=== PATIENT | male | born 1965 | race Caucasian/White ===

== ENCOUNTER → 2021-03-27 08:23 | Outpatient (BNVA) | payer OTHER, SELFPAY | PROVIDERS: Visit Provider Internal Medicine | DX: M79.18 Myalgia, other site (principal); Z91.81 History of falling | CPT/HCPCS: 72100; 99203 ==

== ENCOUNTER → 2021-04-19 08:03 | Outpatient (BNVA) | payer OTHER, SELFPAY | PROVIDERS: Visit Provider Internal Medicine | DX: M54.50 Low back pain, unspecified (principal) | CPT/HCPCS: 99213 ==

== ENCOUNTER 2024-06-24 15:24 | Emergency (ER) | payer BC, SELFPAY ==
--- NOTE | ~2024-06-24 | US_ITS ---
CLINICAL HISTORY: pain Venous duplex ultrasound left lower extremity Comparison: None Findings: The visualized deep veins are fully compressible with normal Doppler color flow and spectral tracings. No popliteal cyst. Several left inguinal lymph nodes are demonstrated the largest measures 2.2 cm x 1.1 cm x 1.3 cm, could be reactive but nonspecific. IMPRESSION: 1. Negative for left lower extremity deep vein thrombosis. This document has been electronically signed by: Nanette Vargas MD on 06/24/2024 18:29:23
[2024-06-24 15:38] VITALS: BP 138/72; PULSE 78; RESP 18; TEMP 37.1; O2SAT 96; BMI 39.2
--- NOTE | 2024-06-24 15:39 | ED.GENADULT ---
HPI - General Adult General Chief complaint: General Medical Stated complaint: ? cellulitis left leg,fever Time Seen by Provider: 06/24/24 19:16 Source: patient, RN notes reviewed and old records reviewed Mode of arrival: ambulatory Limitations: no limitations History of Present Illness HPI narrative: 58-year-old male presents for evaluation of left leg pain and swelling. His symptoms started 2 days ago. He has previously had cellulitis in the area and reports that this feels similar He does endorse subjective fevers and chills last night but does not have those currently or at all today. He is not a diabetic. Denies any recent injuries or wounds to the left lower leg around the muir. He has no calf pain Related Data Previous Rx's ?Medication ?Instructions ?Recorded cephalexin 500 mg tablet 500 mg PO QID #28 tabs 06/24/24 Allergies Allergy/AdvReac Type Severity Reaction Status Date / Time ciprofloxacin [From Cipro] Allergy Joint Pain Verified 06/24/24 15:40 levofloxacin [From Levaquin] Allergy Joint Pain Verified 06/24/24 15:40 quinidine Allergy Palpitation Verified 06/24/24 15:40 s Review of Systems Constitutional: Constitutional: Denies body ache(s), Reports chills and Reports fever(s) Eyes: Eyes: Denies blurry vision ENT: Denies vertigo and Denies dizziness Cardiovascular: Cardiovascular: Denies chest pain and Denies dyspnea Respiratory: Respiratory: Denies cough and Denies dyspnea Gastrointestinal: Gastrointestinal: Denies abdominal pain Integumentary/Breasts: Skin/Breast: Reports erythema, Reports rash, Reports skin pain and Denies wounds Neurologic: Denies vertigo and Denies dizziness PMFSH Social History Social History Smoked in Last 30 Days: No Advance Directives: No Advance Directives Information Provided: No Physical Exam ED Vital Signs: Vital Signs - 24 hr 06/24/24 15:38 06/24/24 19:16 Temperature 98.7 F 98.6 F Pulse Rate 78 66 Respiratory Rate 18 18 Blood Pressure 138/72 138/75 Pulse Oximetry 96 98 Oxygen Delivery Method Room Air Room Air BMI result Body Mass Index 39.2 Const General: healthy appearing, comfortable, no acute distress, alert and awake Nutritional Appearance: well nourished Orientation/consciousness: patient oriented x3 HENMT Head: Yes normocephalic and Yes atraumatic Throat: Yes posterior oropharynx normal Eyes Eyelids: Yes eyelids normal Conjunctivae: conjunctivae normal Sclerae: sclerae normal Corneas: corneas normal Pupils: Equal, round and reactive pupils present EOM: EOMs intact bilaterally Neck Neck: Yes full ROM Resp Effort & Inspection: normal respiratory effort, able to speak in complete sentences and not labored Cardio Rate: regular rate Rhythm: regular rhythm Skin Other: Erythema to the left lower leg approximately 5 cm area on the the anterior surface of the mid muir. No calf tenderness or palpable cords. Negative Homans sign General skin exam: elasticity normal Neuro General: patient oriented x3 Cranial nerves: Yes Equal, round and reactive pupils present and Yes Bilaterally intact EOM present Cognition (Neuro): normal cognition Extrem Other: Moving all extremities well without any obvious deformities Course Course Course Narrative: RME, this is a rapid medical exam performed by Rigoberto Montemayor please refer to primary provider for complete H&P- 58 year old male presents for evaluation of left leg pain, swelling, and fevers this morning. He believes he has cellultis of the left leg which he has had before. Plan for labs and Ultrasound, he is afebrile in triage Medical Decision Making Medical Decision Making [facility] Narrative: 58-year-old male presents for evaluation of left lower leg redness, swelling and pain. He reports subjective fevers but is afebrile in triage with normal vital signs. He has no leukocytosis. Ultrasound negative for DVT. We will treat for a mild cellulitis of the left lower leg with cephalexin which he previously responded well to about 6 months ago. He is not a diabetic Differential Diagnosis Differential Diagnoses: The differential diagnosis associated with the presentation includes Cellulitis Folliculitis DVT Vasculitis Lab Data [facility] Lab Attestation statement: I reviewed the patient's lab results. No leukocytosis or significant anemia. Normal platelet count. No electrolyte abnormalities 06/24/24 16:02 06/24/24 16:02 Labs: Lab Results 06/24/24 Range/Units 16:02 WBC 8.5 (4.8-10.8) X10*3/uL RBC 4.49 L (4.60-5.80) X10*6/uL Hgb 13.8 L (14.0-18.0) g/dl Hct 37.9 L (42.0-52.0) % MCV 84.4 (80.0-98.0) fL MCH 30.7 (27.0-33.0) pg MCHC 36.4 H (31.0-36.0) g/dl RDW 12.4 (11.0-16.0) % Plt Count 182 (160-400) X10*3/uL MPV 9.7 (9.4-12.4) fL Immature Gran % (Auto) 0.4 (0.0-0.4) % Neut % (Auto) 78.4 H (45-73) % Lymph % (Auto) 12.4 L (20-40) % [place] % (Auto) 6.1 (2-11) % Eos % (Auto) 2.5 (0-4) % Baso % (Auto) 0.2 (0-2) % Lymph # (Auto) 1.1 L (1.2-4.9) X10*3/uL [place] # (Auto) 0.5 (0.1-1.2) X10*3/uL Eos # (Auto) 0.2 (0.0-0.4) X10*3/uL Baso # (Auto) 0.0 (0.0-0.2) X10*3/uL Abs Immat Gran (auto) 0.03 (0.00-0.03) X10*3/uL Absolute Neuts (auto) 6.6 (2.0-8.3) x10*3/uL Absolute Nucleated RBC 0.000 (0.0-0.012) X10*3/uL Nucleated RBC % (auto) 0.0 (0.0-0.2) /100WBC Sodium 138 (135-145) mmol/L Potassium 3.4 (3.3-5.1) mmol/L Chloride 108 (96-108) mmol/L Carbon Dioxide 23 (22-29) mmol/L Anion Gap 10 L (12-20) BUN 16 (9-16) mg/dL Creatinine 0.78 (0.5-1.4) mg/dL Estim Creat Clear Calc 122.7 Estimated GFR > 60 Random Glucose 100 (60-115) mg/dL Lactic Acid 0.8 (0.5-2.0) mmol/L Calcium 8.9 (8.4-10.2) mg/dL Total Bilirubin 0.8 (0.0-1.0) mg/dL AST 24 (5-37) U/L ALT 29 (0-40) U/L Alkaline Phosphatase 63 (39-117) U/L Total Protein 6.9 (6.5-8.0) g/dL Albumin 4.0 (3.5-5.0) g/dL Lipase 12 (8-78) U/L Radiology Impression Discussion of test interpretation with radiology: I have reviewed the radiologist's reading. Radiologist Impression: Negative DVT study Discharge Plan Discharge Clinical Impression: Cellulitis Patient Disposition: Home, Self-Care Instructions: Cellulitis (ED) Additional Instructions: Your blood work today was reassuring, your ultrasound was negative for DVT Take the antibiotic every 6 hours for one week to treat cellulitis Prescriptions: New cephalexin 500 mg tablet 500 mg PO QID Qty: 28 0RF Discharge Date/Time: 06/24/24 19:33 Print Language: Welsh
[2024-06-24 16:20] LABS: MANUAL DIFF FLAG NO
[2024-06-24 16:23] LABS: Basophils Percent Auto 0.2 % (0-2); Eosinophils Absolute Auto 0.2 X10*3/uL (0.0-0.4); Eosinophils Percent Auto 2.5 % (0-4); Hematocrit 37.9 % (42.0-52.0); Hemoglobin 13.8 g/dl (14.0-18.0); Imm Gran Abs Auto 0.03 X10*3/uL (0.00-0.03); Imm Gran Pct Auto 0.4 % (0.0-0.4); Lymphocytes Absolute Auto 1.1 X10*3/uL (1.2-4.9); Lymphocytes Percent Auto 12.4 % (20-40); Mean Corpuscular HGB Conc 36.4 g/dl (31.0-36.0); Mean Corpuscular Hemoglobin 30.7 pg (27.0-33.0); Mean Corpuscular Volume 84.4 fL (80.0-98.0); Mean Platelet Volume 9.7 fL (9.4-12.4); Monocytes Absolute Auto 0.5 X10*3/uL (0.1-1.2); Monocytes Percent Auto 6.1 % (2-11); Neutrophils Absolute Auto 6.6 x10*3/uL (2.0-8.3); Neutrophils Percent Auto 78.4 % (45-73); Platelet Count 182 X10*3/uL (160-400); Red Blood Count 4.49 X10*6/uL (4.60-5.80); Red Cell Distribution Width 12.4 % (11.0-16.0); White Blood Count 8.5 X10*3/uL (4.8-10.8)
[2024-06-24 16:35] LABS: Lactic Acid 0.8 mmol/L (0.5-2.0)
[2024-06-24 16:36] LABS: Alanine Aminotransferase 29 U/L (0-40); Alkaline Phosphatase 63 U/L (39-117); Anion Gap 10 (12-20); Aspartate Amino Transferase 24 U/L (5-37); Bilirubin Total 0.8 mg/dL (0.0-1.0); Blood Urea Nitrogen 16 mg/dL (9-16); Calcium 8.9 mg/dL (8.4-10.2); Carbon Dioxide 23 mmol/L (22-29); Chloride 108 mmol/L (96-108); Creatinine Clr Calc Pharmacy 122.7; Estimated Glomerular Filt Rate > 60; Glucose Random 100 mg/dL (60-115); Lipase 12 U/L (8-78); Potassium 3.4 mmol/L (3.3-5.1); Sodium 138 mmol/L (135-145); Total Protein 6.9 g/dL (6.5-8.0)
[2024-06-24 19:16] VITALS: BP 138/75; PULSE 66; RESP 18; TEMP 37; O2SAT 98
--- NOTE | 2024-06-24 19:18 | PC.NURSE ---
Pt reeval by pit provider, cleared for dc home.
== END 2024-06-24 19:33 | disposition home or self-care (01) ==
PROVIDERS: Physician Assistant; Emergency Provider Emergency Medicine; PCP Physician Assistant Medical
DX: L03.116 Cellulitis of left lower limb (principal); M79.605 Pain in left leg; M79.89 Other specified soft tissue disorders
CPT/HCPCS: 36415; 80053; 83605; 83690; 85025; 87040; 93971; 99283; 99284

== ENCOUNTER → 2024-06-24 15:39 | Outpatient (BNV) | payer BC, SELFPAY | PROVIDERS: PCP Physician Assistant Medical; Visit Provider Specialist | DX: M79.605 Pain in left leg (principal) | CPT/HCPCS: 93971 ==